=== PATIENT | female | born 1970 | race Caucasian/White ===

== ENCOUNTER → 2018-03-27 14:16 | Outpatient (CLI) | payer OTHER, SELFPAY ==
--- NOTE | 2018-03-27 | DI.US.S_ITS ---
ULTRASOUND OF RIGHT BREAST: 03/27/2018 CLINICAL: 6 month follow-up biopsy. Comparison is made to exams dated: 03/27/2018 mammogram, 08/15/2017 ultrasound biopsy, 08/15/2017 mammogram, 07/24/2017 ultrasound, 07/04/2017 mammogram, and 07/24/2017 mammogram - [facility]. Color flow and real-time ultrasound of the right breast were performed on the areas of interest. There is a stable benign 0.7 cm x 0.4 cm x 0.7 cm oval mass with an indistinct margin in the right breast at 9 o'clock posterior depth. This oval mass is hypoechoic. This correlates with the previous biopsy. There is an associated biopsy clip. Color flow imaging demonstrates that there is no vascularity present. IMPRESSION: BENIGN There is no sonographic evidence of malignancy. The stable 0.7 cm x 0.4 cm x 0.7 cm oval mass in the right breast is consistent with a fibroadenoma and is benign. A 1 year screening mammogram is recommended. This exam was interpreted at Station ID: [id number]. Electronically Signed By: Josiah potter/essie:03/27/2018 16:11:12 letter sent: Normal Exam Ultrasound BI-RADS: 2 Benign
--- NOTE | 2018-03-27 | DI.MG.S_ITS ---
UNILATERAL RIGHT DIGITAL DIAGNOSTIC MAMMOGRAM 3D/2D SHORT-TERM FOLLOW-UP: 03/27/2018 CLINICAL: 6 month follow-up biopsy. Comparison is made to exams dated: 08/15/2017 mammogram, 07/24/2017 mammogram, and 07/04/2017 mammogram - [facility]. The tissue of the right breast is extremely dense, which lowers the sensitivity of mammography. There is a foreign body in the right breast posterior depth superior region seen on the mediolateral oblique view only. This correlates with the biopsy. There is a biopsy clip associated with the . No other significant masses or calcifications are seen in the breast. IMPRESSION: INCOMPLETE: NEEDS ADDITIONAL IMAGING EVALUATION Biopsy clip redemonstrated in the posterior right breast. Ultrasound is recommended for followup evaluation of the biopsied mass. This exam was interpreted at Station ID: [id number]. NOTE: For mammograms, a report in lay terms will be sent to the patient. Approximately 15% of breast malignancies will not be visualized mammographically. In the management of a palpable breast mass, a negative mammogram must not discourage biopsy of a clinically suspicious lesion. Electronically Signed By: Josiah potter/:03/28/2018 08:39:15 letter sent: Need Ultrasound ACR BI-RADS Category 0: Incomplete 3340F
== END ==
PROVIDERS: PCP Family Medicine; Visit Provider Family Medicine
DX: D24.1 Benign neoplasm of right breast (principal)
CPT/HCPCS: 76642; 77065; G0279

== ENCOUNTER → 2018-09-12 10:19 | Outpatient (CLI) | payer OTHER, SELFPAY ==
--- NOTE | 2018-09-12 | DI.US.S_ITS ---
PROCEDURE: US PELVIC COMPLETE INDICATIONS: PELVIC PAIN TECHNIQUE: Real-time scanning was performed of the pelvic organs, with image documentation. Additional endovaginal scanning was necessary due to incomplete visualization of the adnexal and endometrial structures by transabdominal scanning. COMPARISON: None. FINDINGS: Transabdominal scanning: Limited scanning through the kidneys shows no hydronephrosis. No pathologic free abdominal or pelvic fluid. Endovaginal scanning: Uterus: Uterus is normal in size at 9.9 x 4.8 x 5.6 cm. The uterus demonstrates a somewhat bulbous appearance. No focal fibroids can be seen. The endometrium measures 7 mm in combined thickness. Ovaries: The right ovary measures 3 x 2.3 x 2.9 cm. The left ovary measures 2.9 x 1.1 x 1.9 cm. The ovaries have a normal sonographic appearance, with cysts seen, which are considered to be within physiologic limits. No adnexal masses are seen. IMPRESSION: No significant pelvic ultrasound abnormality can be seen. Dictated by: Akshat Taveras M.D. on 09/12/2018 at 11:18 Approved by: Akshat Taveras M.D. on 09/12/2018 at 11:19
== END ==
PROVIDERS: PCP Family Medicine; Visit Provider Family Medicine
DX: R10.2 Pelvic and perineal pain (principal)
CPT/HCPCS: 76830; 76856

== ENCOUNTER → 2018-10-09 12:08 | Outpatient (CLI) | payer OTHER, SELFPAY ==
--- NOTE | 2018-10-09 | DI.MG.S_ITS ---
BILATERAL DIGITAL SCREENING MAMMOGRAM 3D/2D WITH CAD: 10/09/2018 CLINICAL: Routine screening. Comparison is made to exams dated: 07/04/2017 mammogram, 06/21/2015 mammogram, and 06/18/2014 mammogram - [facility]. The tissue of both breasts is extremely dense, which lowers the sensitivity of mammography. Current study was also evaluated with a Computer Aided Detection (CAD) system. No significant masses, calcifications, or other findings are seen in either breast. There has been no significant interval change. IMPRESSION: NEGATIVE There is no mammographic evidence of malignancy. A 1 year screening mammogram is recommended. This exam was interpreted at Station ID: [id number]. NOTE: For mammograms, a report in lay terms will be sent to the patient. Approximately 15% of breast malignancies will not be visualized mammographically. In the management of a palpable breast mass, a negative mammogram must not discourage biopsy of a clinically suspicious lesion. Electronically Signed By: Josiah potter/essie:10/09/2018 16:05:07 letter sent: Normal Exam ACR BI-RADS Category 1: Negative 3341F
== END ==
PROVIDERS: PCP Family Medicine; Visit Provider Family Medicine
DX: Z12.31 Encounter for screening mammogram for malignant neoplasm of breast (principal)
CPT/HCPCS: 77063; 77067

== ENCOUNTER → 2019-08-07 14:03 | Outpatient (CLI) | payer OTHER, SELFPAY ==
--- NOTE | 2019-08-07 | DI.US.S_ITS ---
ULTRASOUND OF RIGHT BREAST: 08/07/2019 CLINICAL: Palpable right axilla lump. Comparison is made to exams dated: 10/09/2018 mammogram, 03/27/2018 mammogram, 08/15/2017 mammogram, 07/24/2017 mammogram, 07/04/2017 mammogram, and 06/21/2015 mammogram - [facility]. Color flow and real-time ultrasound of the right breast were performed. Weinberg scale images of the real-time examination were reviewed. There are normal appearing right axillary lymph nodes. Corresponding to the palpable area of concern, there is a circumscribed cystic mass measuring approximately 3.8 cm x 3.5 cm x 2.0 cm in the right axilla that appears to contain internal debris and possible thin, smooth septations. No internal or surrounding vascularity. It appears to arise near the glenohumeral joint versus adjacent to the humeral head. No suspicious findings noted in the axillary tail breast tissue. IMPRESSION: INCOMPLETE: NEEDS ADDITIONAL IMAGING EVALUATION Circumscribed, fluid collection versus cystic mass arising near the humeral head or glenohumeral joint that may represent a large paralabral cyst from potential labral tear vs a cystic mass in the region. Further evaluation with radiographs of the right shouder and MRI of the shoulder (without and with intravenous contrast) can be considered. Additionally, recommend completion of breast evaluation with bilateral mammograms. This exam was interpreted at Station ID: [id number]. Electronically Signed By: Mychal Rodriguez M.D. aty/:08/07/2019 16:22:37 letter sent: Additional Imaging Needed Ultrasound BI-RADS: 0 Indeterminate
== END ==
PROVIDERS: PCP Family Medicine; Visit Provider Family Medicine
DX: R92.8 Other abnormal and inconclusive findings on diagnostic imaging of breast (principal); N63.31 Unspecified lump in axillary tail of the right breast
CPT/HCPCS: 76882

== ENCOUNTER → 2019-08-13 15:16 | Outpatient (CLI) | payer OTHER, SELFPAY ==
--- NOTE | 2019-08-13 | DI.RAD.S_ITS ---
PROCEDURE: XR SHOULDER RT MIN 2V INDICATIONS: NECK AND RIGHT SHOULDER PAIN TECHNIQUE: 4 views of the shoulder were acquired. COMPARISON: None. FINDINGS: Bones: No fractures or dislocations. Small soft tissue calcification projecting over the superolateral right humeral head consistent with sequela of chronic calcific rotator cuff tendinopathy. Coracoclavicular and acromioclavicular intervals are maintained. No suspicious bony lesions. Visualized ribs appear intact. Soft tissues: No suspicious soft tissue calcifications. IMPRESSION: Right shoulder without acute radiographic abnormalities. Findings suggesting sequela of chronic calcific rotator cuff tendinopathy. Dictated by: Mychal Rodriguez M.D. on 08/13/2019 at 16:00 Approved by: Mychal Rodriguez M.D. on 08/13/2019 at 16:01
--- NOTE | 2019-08-13 | DI.RAD.S_ITS ---
PROCEDURE: XR CERVICAL SPINE 2V OR 3V INDICATIONS: NECK AND RIGHT SHOULDER PAIN TECHNIQUE: 3 view(s) of the cervical spine were acquired. COMPARISON: None. FINDINGS: Bones: No fractures or dislocations to the T2 level. The lateral masses of C1 appear intact on the odontoid view. No suspicious bony lesions. Straightening of cervical lordosis which may be due to patient positioning and/or concurrent muscle spasms. Multilevel cervical spondylosis most pronounced at C4-C5 and C5-C6. Soft tissues: No prevertebral soft tissue swelling. IMPRESSION: Cervical spine without acute radiographic abnormalities. Multilevel cervical spondylosis most pronounced at C4-5 and C5-6. Mild straightening of normal cervical lordosis likely related to positioning and/or concurrent muscle spasms. Dictated by: Mychal Rodriguez M.D. on 08/13/2019 at 15:58 Approved by: Mychal Rodriguez M.D. on 08/13/2019 at 16:00
== END ==
PROVIDERS: PCP Family Medicine; Visit Provider Family Medicine
DX: M54.2 Cervicalgia (principal); M47.812 Spondylosis without myelopathy or radiculopathy, cervical region; M25.511 Pain in right shoulder
CPT/HCPCS: 72040; 73030

== ENCOUNTER → 2019-08-18 08:14 | Outpatient (CLI) | payer OTHER, SELFPAY ==
--- NOTE | 2019-08-18 | DI.MG.S_ITS ---
BILATERAL DIGITAL DIAGNOSTIC MAMMOGRAM 3D/2D: 08/18/2019 CLINICAL: Right axilllary cyst. Comparison is made to exams dated: 10/09/2018 mammogram, 03/27/2018 mammogram, 07/04/2017 mammogram, 08/07/2019 ultrasound, and 06/21/2015 mammogram - [facility]. The tissue of both breasts is extremely dense, which lowers the sensitivity of mammography. There was an asymmetry in the medial right breast at middle depth which resolves and has the appearance of benign fibroglandular tissues on spot compression and tomosynthesis views. Grouped coarse calcifications of the right breast remain stable to comparison mammograms dating back to at least 07/04/17, consistent with benignity. No suspicious masses, calcifications, or other findings are seen in either breast. IMPRESSION: 1) No mammographic findings to explain or correlate with the reported circumscribed, fluid collection versus cystic mass arising near the humeral head or glenohumeral joint that may represent a large paralabral cyst from potential labral tear vs a cystic mass in the region described on comparison right axillary ultrasound of 08/07/19. Recommend clinical follow-up for further evaluation and management. Further evaluation with radiographs of the right shouder and contrast-enhanced MRI of the shoulder (with and without intravenous contrast) are again recommended. 2) There is no mammographic evidence of malignancy in the imaged areas of the breasts bilaterally. Return to annual mammogram screening schedule is recommended. The patient is advised to monitor her breasts and to return sooner for reevaluation if she feels anything grow or change in her breasts. This exam was interpreted at Station ID: [id number]. NOTE: For mammograms, a report in lay terms will be sent to the patient. Approximately 15% of breast malignancies will not be visualized mammographically. In the management of a palpable breast mass, a negative mammogram must not discourage biopsy of a clinically suspicious lesion. Electronically Signed By: Hemal Angulo M.D. ecl/:08/18/2019 09:10:49 letter sent: Clinical Evaluation ACR BI-RADS Category 2: Benign Finding(s) 3342F
== END ==
PROVIDERS: PCP Family Medicine; Visit Provider Family Medicine
DX: R92.1 Mammographic calcification found on diagnostic imaging of breast (principal); N60.01 Solitary cyst of right breast
CPT/HCPCS: 77066; G0279

== ENCOUNTER → 2019-09-03 11:36 | Outpatient (CLI) | payer OTHER, SELFPAY ==
--- NOTE | 2019-09-03 | DI.MRI.S_ITS ---
PROCEDURE: MR SHOULDER RT WO CON INDICATIONS: RIGHT ROTATOR CUFF TENDONITIS/CYST TECHNIQUE: Noncontrast oblique coronal T2 fast spin echo with fat saturation, oblique sagittal T1 spin echo and T2 fast spin echo with fat saturation, axial T1 spin echo and T2 fast spin echo with fat saturation through the shoulder. COMPARISON: None. FINDINGS: Image quality: Excellent. Rotator cuff: Distal supraspinatus and infraspinatus tendinosis is seen. Distal subscapularis tendinosis is also noted. No evidence of rotator cuff tendon tear. Sagittal images demonstrate no significant muscle atrophy. Bones and bursae: No bone marrow contusions or fractures. Mild acromioclavicular joint and glenohumeral joint osteoarthritic changes are seen. No pathologic subacromial-subdeltoid or subcoracoid bursal fluid is present. Capsule and soft tissues: In the absence of intra-articular contrast, There is contour irregularity and signal abnormality involving the anterior-inferior labrum at 4 to 6:00 position. There is a lobulated cystic structure is seen adjacent to the inferior labrum measures 3.3 x 1.7 x 2 cm in size and is most consistent with large haley labral cyst. The glenohumeral ligaments appear intact. The long head of the biceps tendon demonstrates normal location and morphology. The rotator interval appears normal, without fibrosis. The coracohumeral ligament is normal in thickness. IMPRESSION: 1. Anterior inferior labral tear at 4 to 6:00 position with a large 3.3 x 1.7 x 2 cm perilabral cyst adjacent to inferior labrum. 2. Tendinosis involving distal supraspinatus, infraspinatus and subscapularis tendons. No evidence of rotator cuff tendon tear. No muscle atrophy. 3. Mild acromioclavicular joint and glenohumeral joint osteoarthritis. Dictated by: Krystian Cook M.D. on 09/03/2019 at 14:28 Approved by: Krystian Cook M.D. on 09/03/2019 at 14:39
== END ==
PROVIDERS: PCP Family Medicine; Visit Provider Family Medicine
DX: M75.81 Other shoulder lesions, right shoulder (principal); S43.491A Other sprain of right shoulder joint, initial encounter; M19.011 Primary osteoarthritis, right shoulder
CPT/HCPCS: 73221

== ENCOUNTER → 2019-09-25 11:47 | Outpatient (CLI) | payer OTHER, SELFPAY ==
--- NOTE | 2019-09-25 | DI.US.S_ITS ---
PROCEDURE: US PELVIC COMPLETE INDICATIONS: METRORRHAGIA TECHNIQUE: Real-time scanning was performed of the pelvic organs, with image documentation. Additional endovaginal scanning was necessary due to incomplete visualization of the adnexal and endometrial structures by transabdominal scanning. COMPARISON: [facility], , PELVIC COMPLETE, 09/12/2018, 10:34. FINDINGS: Transabdominal scanning: Limited scanning through the kidneys shows no hydronephrosis. No pathologic free abdominal or pelvic fluid. Anteverted uterus. Endovaginal scanning: Uterus: Uterus is normal in size at 9.8 x 5.9 x 4.8 cm. The endometrium measures 10 mm in combined thickness. There is a 2 mm endometrial cyst. There are occasional linear hyperechoic foci extending anterior from the endometrium to the junctional zone. Myometrial vascularity is normal. Trace fluid in the cul-de-sac. Ovaries: The right ovary measures 4.0 x 2.0 x 2.5 cm and contains multiple follicles, the largest measuring about 8 mm. The left ovary measures 4.3 x 2.7 x 1.6 cm and contains multiple follicles including a a peripherally vascular dominant follicle measuring 2.1 cm. IMPRESSION: 1. The endometrium contains a cyst and there are occasional adjacent linear echogenic foci which raises the possibility of adenomyosis. Correlate clinically and consider pelvic MRI for definitive diagnosis. 2. Normal ovaries including a corpus luteum cyst. Dictated by: Jessie Hilliard M.D. on 09/25/2019 at 14:20 Approved by: Jessie Hilliard M.D. on 09/25/2019 at 14:27
== END ==
PROVIDERS: PCP Family Medicine; Visit Provider Family Medicine
DX: N92.1 Excessive and frequent menstruation with irregular cycle (principal); N85.8 Other specified noninflammatory disorders of uterus; N83.12 Corpus luteum cyst of left ovary
CPT/HCPCS: 76830; 76856

== ENCOUNTER → 2020-02-27 12:27 | Outpatient (CLI) | payer OTHER, SELFPAY ==
--- NOTE | 2020-02-27 | DI.RAD.S_ITS ---
PROCEDURE: XR CHEST 2V INDICATIONS: Chest pain TECHNIQUE: 2 views of the chest were acquired. COMPARISON: None. FINDINGS: Surgical changes and devices: A right breast clip is incidentally noted. Lungs and pleura: Lungs are clear. No pleural effusions or pneumothorax. Mediastinum: Mediastinal contours are normal. Heart size is normal. Bones and chest wall: No suspicious bony abnormalities. Soft tissues appear unremarkable. IMPRESSION: No acute cardiopulmonary process is seen. Dictated by: Akshat Taveras M.D. on 02/27/2020 at 12:28 Approved by: Akshat Taveras M.D. on 02/27/2020 at 12:29
== END ==
PROVIDERS: PCP Family Medicine; Referring Provider Family Medicine; Visit Provider Family Medicine
DX: R07.89 Other chest pain (principal)
CPT/HCPCS: 71046

== ENCOUNTER → 2020-09-07 11:20 | Outpatient (CLI) | payer OTHER, SELFPAY ==
--- NOTE | 2020-09-07 | DI.MG.S_ITS ---
BILATERAL DIGITAL SCREENING MAMMOGRAM 3D/2D WITH CAD: 09/07/2020 CLINICAL: Routine screening. Comparison is made to exams dated: 08/18/2019 mammogram, 10/09/2018 mammogram, 03/27/2018 mammogram, and 08/15/2017 mammogram - [facility]. The tissue of both breasts is extremely dense, which lowers the sensitivity of mammography. Current study was also evaluated with a Computer Aided Detection (CAD) system. No significant masses, calcifications, or other findings are seen in either breast. There has been no significant interval change. IMPRESSION: NEGATIVE There is no mammographic evidence of malignancy. A 1 year screening mammogram is recommended. This exam was interpreted at Station ID: [id number]. NOTE: For mammograms, a report in lay terms will be sent to the patient. Approximately 15% of breast malignancies will not be visualized mammographically. In the management of a palpable breast mass, a negative mammogram must not discourage biopsy of a clinically suspicious lesion. Electronically Signed By: Matty donnelly/essie:09/07/2020 14:16:41 letter sent: Normal Exam ACR BI-RADS Category 1: Negative 3341F
== END ==
PROVIDERS: PCP Family Medicine; Referring Provider Family Medicine; Visit Provider Naturopath
DX: Z12.31 Encounter for screening mammogram for malignant neoplasm of breast (principal)
CPT/HCPCS: 77063; 77067

== ENCOUNTER → 2021-09-21 19:33 | Outpatient (ROUT) | payer OTHER, SELFPAY | PROVIDERS: PCP Family Medicine; Visit Provider Family Medicine | DX: N89.8 Other specified noninflammatory disorders of vagina (principal) | CPT/HCPCS: 87070; 87205 ==

== ENCOUNTER → 2022-10-20 08:49 | Outpatient (CLI) | payer OTHER, SELFPAY ==
--- NOTE | 2022-10-20 | DI.MG.S_ITS ---
BILATERAL DIGITAL SCREENING MAMMOGRAM 3D/2D WITH CAD: 10/20/2022 CLINICAL: Routine screening. Comparison is made to exams dated: 09/07/2020 mammogram, 08/18/2019 mammogram, and 10/09/2018 mammogram - . Both breasts are extremely dense, which lowers the sensitivity of mammography (category d />75% glandular tissue). Current study was also evaluated with a Computer Aided Detection (CAD) system. No significant masses, calcifications, or other findings are seen in either breast. There has been no significant interval change. IMPRESSION: NEGATIVE There is no mammographic evidence of malignancy. A 1 year screening mammogram is recommended. This exam was interpreted at Station ID: [id number]. NOTE: For mammograms, a report in lay terms will be sent to the patient. Approximately 15% of breast malignancies will not be visualized mammographically. In the management of a palpable breast mass, a negative mammogram must not discourage biopsy of a clinically suspicious lesion. Electronically Signed By: Jerry Sparks M.D., jr/essie:10/20/2022 12:06:05 letter sent: Normal Exam ACR BI-RADS Category 1: Negative 3341F
== END ==
PROVIDERS: PCP Family Medicine; Referring Provider Family Medicine; Visit Provider Family Medicine
DX: Z12.31 Encounter for screening mammogram for malignant neoplasm of breast (principal)
CPT/HCPCS: 77063; 77067

== ENCOUNTER → 2024-08-12 14:07 | Outpatient (CLI) | payer OTHER, SELFPAY ==
--- NOTE | 2024-08-12 14:10 | DI.MG.S_ITS ---
BILATERAL DIGITAL SCREENING MAMMOGRAM 3D/2D WITH CAD: 08/12/2024 CLINICAL: Routine screening. Comparison is made to exams dated: 10/20/2022 mammogram, 09/07/2020 mammogram, and 08/18/2019 mammogram - [facility]. The breasts are extremely dense, which lowers the sensitivity of mammography (category d />75% glandular tissue). Current study was also evaluated with a Computer Aided Detection (CAD) system. There is a possible developing irregular high density asymmetry in the right breast posterior depth superior region seen on the mediolateral oblique view only. No other significant masses, calcifications, or other findings are seen in either breast. IMPRESSION: INCOMPLETE: NEED ADDITIONAL IMAGING EVALUATION The possible developing irregular high density asymmetry in the right breast is indeterminate. Additional views with possible ultrasound are recommended. Based on the Tyrer Cuzick model (a risk assessment model) the patient's lifetime risk is 17.2% and her 10 year risk is 5.1%. According to the ACR, ACS, and NCCN guidelines, an annual breast MRI exam along with mammogram is recommended if the patient's lifetime risk is 20% or greater. This exam was interpreted at Station ID: [id number]. NOTE: For mammograms, a report in lay terms will be sent to the patient. Approximately 15% of breast malignancies will not be visualized mammographically. In the management of a palpable breast mass, a negative mammogram must not discourage biopsy of a clinically suspicious lesion. Electronically Signed By: Jessie olvera/essie:08/12/2024 17:50:40 letter sent: Additional Imaging Needed ACR BI-RADS Category 0: Incomplete: Need Additional Imaging Evaluation
== END ==
PROVIDERS: PCP Family Medicine; Referring Provider Family Medicine; Visit Provider Family Medicine
DX: Z12.31 Encounter for screening mammogram for malignant neoplasm of breast (principal); R92.343 Mammographic extreme density, bilateral breasts
CPT/HCPCS: 77063; 77067

== ENCOUNTER → 2024-08-28 10:21 | Outpatient (CLI) | payer OTHER, SELFPAY ==
--- NOTE | 2024-08-28 10:22 | DI.US.S_ITS ---
PROCEDURE: US BREAST RT LIMITED COMPARISON: [facility], BREAST RT LIMITED, 03/27/2018, 15:02. INDICATIONS: ADD VIEWS RIGHT FINDINGS: IMPRESSION: Dictated by: Mychal Rodriguez M.D. on 08/28/2024 at 16:55 Approved by: Mychal Rodriguez M.D. on 08/28/2024 at 17:06
--- NOTE | 2024-08-28 10:22 | DI.MG.S_ITS ---
UNILATERAL RIGHT DIGITAL DIAGNOSTIC MAMMOGRAM 3D/2D WITH ADDITIONAL VIEWS: 08/28/2024 CLINICAL: Additional evaluation requested from prior study. Comparison is made to exams dated: 08/12/2024 mammogram, 10/20/2022 mammogram, 07/24/2017 mammogram, 07/24/2017 ultrasound, 08/15/2017 ultrasound biopsy, and 10/09/2018 mammogram - [facility]. The breasts are extremely dense, which lowers the sensitivity of mammography (category d />75% glandular tissue). There is an oval high density asymmetry in the right breast posterior depth superior region seen on the mediolateral oblique view only. This is seen in additional views. This is not significantly changed compared to remote mammographic studies obtained during evaluation of a similar mass that resulted in a biopsy with benign histology. There is a biopsy clip associated with the asymmetry as noted on today's evaluation. No other significant masses or calcifications are seen in the breast. IMPRESSION: INCOMPLETE: NEED ADDITIONAL IMAGING EVALUATION The oval high density asymmetry in the right breast correlates with site of previous benign breast biopsy but remains indeterminate. An ultrasound is recommended to confirm appearance of this mass, and is scheduled to immediately follow this examination. Based on the Tyrer Cuzick model (a risk assessment model) the patient's lifetime risk is 17.4% and her 10 year risk is 5.5%. According to the ACR, ACS, and NCCN guidelines, an annual breast MRI exam along with mammogram is recommended if the patient's lifetime risk is 20% or greater. This exam was interpreted at Station ID: [id number]. NOTE: For mammograms, a report in lay terms will be sent to the patient. Approximately 15% of breast malignancies will not be visualized mammographically. In the management of a palpable breast mass, a negative mammogram must not discourage biopsy of a clinically suspicious lesion. Electronically Signed By: Mychal Rodriguez M.D. aty/:08/28/2024 16:54:39 letter sent: Additional Imaging Needed ACR BI-RADS Category 0: Incomplete: Need Additional Imaging Evaluation
--- NOTE | 2024-08-28 11:18 | DI.US.S_ITS ---
Patient Name: SHAHNAZ LEE date: 1970 Sex: F Attending Physician: Risa Indications: Date: 08/28/2024 17:05 At the request of: PJ MORRELL Procedure: US breast RT limited LIMITED ULTRASOUND OF RIGHT BREAST: 08/28/2024 CLINICAL: Patient returns today to evaluate a focal asymmetry in the right breast. Comparison is made to exams dated: 08/28/2024 mammogram, 08/12/2024 mammogram, 08/07/2019 ultrasound, 07/24/2017 ultrasound, 08/15/2017 ultrasound biopsy, and 03/27/2018 ultrasound - [facility]. Color flow and real-time ultrasound of the right breast 9 o'clock region were performed. Weinberg scale images of the real-time examination were reviewed. There is a 0.9 cm x 0.4 cm x 0.9 cm wider than tall oval mass in the right breast at 9 o'clock posterior depth 6 cm from the nipple. This oval mass is hypoechoic. This abnormality is not significantly changed and correlates with the previous biopsy (labeled at 9:30 7cm from nipple previously). Color flow imaging demonstrates that there is no vascularity present. IMPRESSION: BENIGN There is no sonographic evidence of malignancy. The 0.9 cm x 0.4 cm x 0.9 cm wider than tall oval mass in the right breast correlates with previously biopsied benign mass and mammographic findings. It is not significantly changed and is benign. Return to annual mammogram screening schedule is recommended. Findings and recommendations were conveyed to the patient during today's evaluation. This exam was interpreted at Station ID: [id number]. Electronically Signed By: Mychal Rodriguez M.D. aty/:08/28/2024 17:05:55 Continued Report - Page 2 of 2 Patient Name: SHAHNAZ LEE date: 1970 Sex: F Attending Physician: Risa Indications: Date: 08/28/2024 17:05 At the request of: PJ MORRELL Procedure: US breast RT limited letter sent: Normal Exam ACR BI-RADS Category 2: Benign
== END ==
PROVIDERS: PCP Family Medicine; Referring Provider Family Medicine; Visit Provider Family Medicine
DX: R92.8 Other abnormal and inconclusive findings on diagnostic imaging of breast (principal); R92.343 Mammographic extreme density, bilateral breasts; N63.15 Unspecified lump in the right breast, overlapping quadrants
CPT/HCPCS: 76642; 77065; G0279